=== PATIENT | female | born 1970 | race Caucasian/White ===

== ENCOUNTER 2017-07-14 22:05 | Emergency (ER) | payer BC ==
[~2017-07-14] VITALS: Ht 157.5 cm; Wt 77.1 kg
[2017-07-14 22:36] VITALS: BP 145/65
[2017-07-14] MEDS ORDERED: DICL50TA4 PO (23:25)
--- NOTE | 2017-07-14 23:31 | PHYS DOC ---
Adult General Chief Complaint Chief Complaint: FOOT INJURY PAIN [facility] Patient is a 47 year old female who presents with left foot pain that has been going on for a while but got worse today. Patient states in January of 2017 she dropped a can of food on her left foot. She states a couple months later she stepped back and developed mild pain on her left lateral foot. Today she states she was carrying some cabinets when she stepped back and she developed pain on the left lateral foot. Patient states the pain is mild but worse on ambulation. Patient has not had any x-rays of the foot. Review of Systems Review of Systems Constitutional: Denies fever or chills [] Musculoskeletal: Left lateral foot pain Integument: Denies rash or skin lesions [] Neurologic: Denies headache, focal weakness or sensory changes [] Physical Exam Physical Exam Constitutional: Well developed, well nourished, no acute distress, non-toxic appearance. [] Skin: Warm, dry, no erythema, no rash. [] Back: No tenderness, no CVA tenderness. [] Extremities: Left foot with no obvious edema and obvious ecchymosis no obvious deformity. Tenderness on the left lateral foot. Slight tenderness on the base of the fifth metatarsal of the left foot. Full range of motion to the left foot and toes. +2 left pedal pulse. Cap refill less than 2 seconds the left toes. Sensation intact to the left lower extremity. Neurologic: Alert and oriented X 3, normal motor function, normal sensory function, no focal deficits noted. [] Psychologic: Affect normal, judgement normal, mood normal. [] EKG EKG [] Radiology/Procedures Radiology/Procedures [] Course & Med Decision Making Course & Med Decision Making Pertinent Labs and Imaging studies reviewed. (See chart for details) Patient is in the ED with left foot pain, no known injury during this visit but has had pain since January see [facility]. Left foot x-rays interpreted by Dr. Salter were negative for any acute findings. Patient was provided an orthopedic shoe by the fiscal technician, neurovascular exam done by me is normal, cap refill less than 2 seconds. Ice elevation encouraged. Diclofenac for pain. Follow-up with orthopedic doctor in a week. Dragon Disclaimer Dragon Disclaimer This electronic medical record was generated, in whole or in part, using a voice recognition dictation system. Departure Departure Impression: Primary Impression: Sprain of left foot Disposition: HOME, SELF-CARE Condition: STABLE Referrals: NO PCP (PCP) ANDRADE SILVER II, MD Follow-up with your doctor in one week with the provided orthopedic doctor Patient Instructions: Foot Sprain-Brief Additional Instructions: You were seen for left foot pain, you could've sprained your foot. Your left foot x-ray were negative for any acute findings. Ice elevate the extremity, take the prescribed medicine as needed for pain. Follow-up with your orthopedic doctor or the provided orthopedic doctor in one week if pain continues. Scripts Diclofenac Sodium (DICLOFENAC SODIUM) 50 Mg Tablet.dr 1 TAB PO BID, #30 TAB 0 Refills Prov: SHAWN AL APRN 07/14/17 Problem Qualifiers Primary Impression: Sprain of left foot Encounter type: initial encounter Qualified Codes: S93.602A - Unspecified sprain of left foot, initial encounter SHAWN AL APRN Jul 14, 2017 23:31
--- NOTE | 2017-07-15 07:16 | RAD ---
Left foot, 3 views, 07/14/2017: History: Injury, pain No fracture or dislocation is identified. The soft tissues are unremarkable. IMPRESSION: No acute left foot abnormality is detected.
== END 2017-07-15 00:12 | disposition home or self-care (01) ==
LOC: ER 22:05
DX: S93.602A Unspecified sprain of left foot, initial encounter (principal); X50.9XXA Other and unspecified overexertion or strenuous movements or postures, initial encounter; Y93.89 Activity, other specified; Y92.89 Other specified places as the place of occurrence of the external cause; Y99.8 Other external cause status
CPT/HCPCS: 73630; 99284

== ENCOUNTER → 2018-01-01 | Outpatient (CLI) | payer BC | END | disposition home or self-care (01) | LOC: KCIC CT 15:09 | DX: J32.1 Chronic frontal sinusitis (principal) | CPT/HCPCS: 70486 ==

== ENCOUNTER 2018-10-08 07:42 | Emergency (ER) | payer BC ==
[~2018-10-08] VITALS: Ht 157.5 cm; Wt 77.1 kg
[~2018-10-08 07:42] MED LIST: DICL50TA4 PO
[2018-10-08 08:12] LABS: BASO # 0.1 x10^3/uL (0.0-0.2); BASO % 1 % (0-3); EOS # 0.3 x10^3/uL (0.0-0.7); EOS % 4 % (0-3); HEMATOCRIT 40.2 % (36.0-47.0); HEMOGLOBIN 14.1 g/dL (12.0-15.5); LYMPH # 1.6 x10^3/uL (1.0-4.8); LYMPH % 23 % (24-48); MEAN CORPUSCULAR HEMOGLOBIN 30 pg (25-35); MEAN CORPUSCULAR HGB CONC 35 g/dL (31-37); MEAN CORPUSCULAR VOLUME 86 fL (79-100); MONO # 0.4 x10^3/uL (0.0-1.1); MONO % 5 % (0-9); NEUT # 4.7 x10^3uL (1.8-7.7); NEUT % 66 % (31-73); PLATELET COUNT 381 x10^3/uL (140-400); RED BLOOD COUNT 4.66 x10^6/uL (3.50-5.40); RED CELL DISTRIBUTION WIDTH 13.9 % (11.5-14.5); WHITE BLOOD COUNT 7.2 x10^3/uL (4.0-11.0)
--- NOTE | 2018-10-08 08:16 | RAD ---
PROCEDURE: PORTABLE CHEST 1V CLINICAL INDICATION: MID TO LT SIDE CHEST PAIN STARTING LAST PM. COMPARISON: None FINDINGS: No pneumothorax identified. Cardiac and mediastinal contours unremarkable. No pulmonary consolidation or acute airspace disease. No acute osseous abnormalities identified. IMPRESSION: No pulmonary consolidation or acute airspace disease. Electronically signed by: Brody Harper DO (10/08/2018 8:12 AM) [id number]
--- NOTE | 2018-10-08 08:16 | PHYS DOC ---
Past Medical History Past Medical History: No Pertinent History Past Surgical History: Tubal ligation Alcohol Use: None Drug Use: None Adult General Chief Complaint Chief Complaint: CHEST PAIN [facility] HPI Patient is a 48 year old female who presents with chest pain. Patient presents with chest pain that started around 8 PM last evening. Pain is located over the sternal area and is nonradiating. Pain is described to be sharp. There are no aggravating or alleviating factors. Patient denies that she has had similar symptoms in the past. She denies frequent eructations or GERD-like symptoms. No fever, chills. Patient was recently treated with an antibiotic with a diagnosis of sinusitis by her primary care physician. No shortness of breath, palpitations, syncope. No prior history of high blood pressure or coronary artery disease. Review of Systems Review of Systems Constitutional: Denies fever or chills Eyes: Denies change in visual acuity HENT: Denies nasal congestion Respiratory: Denies dyspnea Cardiovascular: No additional information not addressed in HPI GI: Denies abdominal pain : Denies dysuria or hematuria Musculoskeletal: Denies back pain Integument: Denies rash or skin lesions Neurologic: Denies headache All other systems were reviewed and found to be within normal limits, except as documented in this note. Current Medications Current Medications Current Medications Medications (Trade) Dose Ordered Sig/Jenn Start Time Stop Time Status Last Admin Dose Admin Multi-Ingredient Mouthwash/Gargle (Gi Cocktail) 20 ml 1X ONCE 10/08/18 09:00 10/08/18 09:01 DC 10/08/18 09:18 20 ML Allergies Allergies Allergies Coded Allergies Type Severity Reaction Last Updated Verified No Known Drug Allergies 10/08/18 No Physical Exam Physical Exam Constitutional: Well developed, well nourished, no acute distress, non-toxic appearance HENT: Normocephalic, atraumatic, bilateral external ears normal, oropharynx moist Eyes: PERRLA, EOMI, conjunctiva normal Neck: Normal range of motion, no tenderness Cardiovascular:Heart rate regular rhythm, no murmur Lungs & Thorax: Bilateral breath sounds clear to auscultation Abdomen: Bowel sounds normal, soft, no tenderness Skin: Warm, dry Extremities: No edema Neurologic: Alert and oriented X 3 Psychologic: Affect normal Current Patient Data Vital Signs Vital Signs Date Time Temp Pulse Resp B/P (MAP) Pulse Ox O2 Delivery O2 Flow Rate FiO2 10/08/18 09:19 87 159/75 (103) 10/08/18 07:55 98.3 16 98 Room Air 98.3 Lab Values Laboratory Tests Test 10/08/18 08:02 White Blood Count 7.2 x10^3/uL (4.0-11.0) Red Blood Count 4.66 x10^6/uL (3.50-5.40) Hemoglobin 14.1 g/dL (12.0-15.5) Hematocrit 40.2 % (36.0-47.0) Mean Corpuscular Volume 86 fL (79-100) Mean Corpuscular Hemoglobin 30 pg (25-35) Mean Corpuscular Hemoglobin Concent 35 g/dL (31-37) Red Cell Distribution Width 13.9 % (11.5-14.5) Platelet Count 381 x10^3/uL (140-400) Neutrophils (%) (Auto) 66 % (31-73) Lymphocytes (%) (Auto) 23 % (24-48) L Monocytes (%) (Auto) 5 % (0-9) Eosinophils (%) (Auto) 4 % (0-3) H Basophils (%) (Auto) 1 % (0-3) Neutrophils # (Auto) 4.7 x10^3uL (1.8-7.7) Lymphocytes # (Auto) 1.6 x10^3/uL (1.0-4.8) Monocytes # (Auto) 0.4 x10^3/uL (0.0-1.1) Eosinophils # (Auto) 0.3 x10^3/uL (0.0-0.7) Basophils # (Auto) 0.1 x10^3/uL (0.0-0.2) D-Dimer (Dorothy) < 0.27 ug/mlFEU Sodium Level 142 mmol/L (136-145) Potassium Level 3.9 mmol/L (3.5-5.1) Chloride Level 105 mmol/L (98-107) Carbon Dioxide Level 27 mmol/L (21-32) Anion Gap 10 (6-14) Blood Urea Nitrogen 11 mg/dL (7-20) Creatinine 0.8 mg/dL (0.6-1.0) Estimated GFR (Cockcroft-Gault) 76.6 Glucose Level 113 mg/dL (70-99) H Calcium Level 9.1 mg/dL (8.5-10.1) Troponin I Quantitative < 0.017 ng/mL (0.000-0.055) Laboratory Tests 10/08/18 08:02 Laboratory Tests 10/08/18 08:02 EKG EKG NSR No STEMI Interpretation Time: 07:55 Radiology/Procedures Radiology/Procedures PCXR: no acute findings. Course & Med Decision Making Course & Med Decision Making Pertinent Labs and Imaging studies reviewed. (See chart for details) Patient is evaluated immediately on arrival to her room. No acute distress. Standard cardiac workup is ordered. Initial EKG does not reveal any suspicious findings for ischemia. 10:00: All results are reviewed. The patient has no acute findings on her lab panel. Troponin is not elevated and the patient has been having pain for many days. On repeat examination the patient does endorse some chronic history of left rotator cuff tenderness. I did examine her rotator cuff. Her presenting symptoms were mildly worsened with the lift off test to evaluate the infraspinatus. She was given a GI cocktail which did not significantly change her symptoms. Plan is for discharge home. The patient does give a history consistent with allergic rhinitis and she was recently treated for sinusitis with Ceftin air. Will give her some Nasonex. Also ibuprofen if she feels her pain is musculoskeletal or some Zantac if she feels it is more acid related. Given the patient's age, she is referred to cardiology for risk stratification and stress testing if they feel indicated. All of her questions are answered prior to discharge and she is agreeable to the plan of care. [place] Disclaimer Dragon Disclaimer This electronic medical record was generated, in whole or in part, using a voice recognition dictation system. Departure Departure Referrals: NO PCP (PCP) Scripts Ranitidine Hcl (RANITIDINE HCL) 150 Mg Tablet 1 TAB PO BID, #30 TAB 0 Refills Prov: JASON GIRALDO DO 10/08/18 Mometasone Furoate (NASONEX) 17 Gm [place].pump 2 SPRAYS NS QHS, #1 INHALER Prov: JASON GIRALDO DO 10/08/18 Ibuprofen (IBUPROFEN) 800 Mg Tablet 800 MG PO PRN TID PRN for PAIN, #21 TAB take with food or milk to avoid upsetting stomach Prov: JASON GIRALDO DO 10/08/18 JASON GIRALDO DO Oct 08, 2018 08:16
[2018-10-08 08:23] LABS: CALCIUM 9.1 mg/dL (8.5-10.1); CREATININE 0.8 mg/dL (0.6-1.0); GFR 76.6; POTASSIUM 3.9 mmol/L (3.5-5.1)
[2018-10-08] MEDS ORDERED: LIDO:MAALOX 1:1 20 ML SINGLE DOSE. PO ONE (09:00)
--- NOTE | 2018-10-08 09:27 | EKG ---
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
[2018-10-08] MEDS ORDERED: IBUP-1060 PO (09:56)
[2018-10-08] MEDS ORDERED: RANI150T2 PO (09:56)
[2018-10-08] MEDS ORDERED: MOME17SP NS (09:56)
[2018-10-08 10:12] VITALS: BP 159/75
== END 2018-10-08 10:13 | disposition home or self-care (01) ==
LOC: ER 07:42
DX: R07.2 Precordial pain (principal)
CPT/HCPCS: 36415; 71045; 80048; 84484; 85025; 85379; 93005; 99285